=== PATIENT | male | born 1975 | race Hispanic/Latino ===

== ENCOUNTER 2016-10-17 17:58 | Emergency (ER) | payer BC, MEDICAID ==
[2016-10-17 17:58] VITALS: BMI 30.7
[2016-10-17 18:37] VITALS: BP 122/80; PULSE 70; RESP 18; TEMP 98.2; O2SAT 97
--- NOTE | 2016-10-17 20:58 | C.PDOC ---
History Of Present Illness 41 year old patient presents to the ED complaining of left wrist pain for the past 4-5 days. Patient reports he was lifting something heavy at work when he felt a sharp pain in his wrist. The pain has been constant. Patient denies fever , numbness, weakness, or taking any medications. Time Seen by Provider: 10/17/16 20:06 Chief Complaint (Nursing): Finger,Hand,&Wrist History Per: Patient History/Exam Limitations: no limitations Onset/Duration Of Symptoms: Days (4-5) Current Symptoms Are (Timing): Still Present Quality: "Pain" Severity: Mild Pain Scale Rating Of: 3 Exacerbating Factor(s): Movement Recent travel outside of the [place]: No Past Medical History Reviewed: Historical Data, Nursing Documentation, Vital Signs Vital Signs: Last Vital Signs Temp 98.2 F 10/17/16 18:35 Pulse 70 10/17/16 18:35 Resp 18 10/17/16 18:35 BP 122/80 10/17/16 18:35 Pulse Ox 97 10/17/16 21:12 - Optics 1 Procedures INJECT/INFUSE NEC (06/12/13) Family History: States: Unknown Family Hx - Social History Hx Tobacco Use: No Hx Alcohol Use: No Hx Substance Use: No Review Of Systems Except As Marked, All Systems Reviewed And Found Negative. Constitutional: Negative for: Fever Musculoskeletal: Positive for: Other (left wrist pain) Neurological: Negative for: Weakness, Numbness Physical Exam - Physical Exam Appears: Non-toxic, No Acute Distress Skin: Warm, Dry Extremity: Normal ROM, Capillary Refill (<2 seconds), No Deformity, No Swelling , Other (left wrist: (+)normal radial pulse (+)<2 seconds capillary refill (-) deformity (-)swelling (+)tenderness to the volar aspect of the left wrist (+) good ROM to elbow (+)good strength and sensation) Extremity: Bilateral: Normal Color And Temperature Neurological/Psych: Oriented x3, Normal Motor, Normal Sensation Gait: Steady ED Course And Treatment O2 Sat by Pulse Oximetry: 97 (RA) Pulse Ox Interpretation: Normal - Other Rad left wrist x-ray X-Ray: Interpreted by Me, Viewed By Me Interpretation: no fractures or dislocations Progress Note: Plan: -Motrin. -Left wrist x-ray Disposition Counseled Patient/Family Regarding: Diagnosis, Need For Followup, Rx Given - Disposition Referrals: Jong Shore [Staff Provider] - Disposition: HOME/ ROUTINE Disposition Time: 21:09 Condition: GOOD Additional Instructions: Please follow up with PMD Take motrin for pain Keep wrist splint for support Return to ER if worse Prescriptions: Ibuprofen [Motrin] 600 mg PO Q6H #30 tab Instructions: Wrist Sprain (ED) Forms: Work Excuse Print Language: BANGLADESHI - Clinical Impression Clinical Impression: Left wrist sprain - PA / RN MANAGED CARE / Resident Statement MD/DO has reviewed & agrees with the documentation as recorded. - Scribe Statement The provider has reviewed the documentation as recorded by the Scribe Keyonna Pringle All medical record entries made by the Scribe were at my direction and personally dictated by me. I have reviewed the chart and agree that the record accurately reflects my personal performance of the history, physical exam, medical decision making, and the department course for this patient. I have also personally directed, reviewed, and agree with the discharge instructions and disposition.
--- NOTE | 2016-10-18 10:11 | RAD ---
PROCEDURE: Left Wrist Radiographs. HISTORY: pain, twisting injury COMPARISON: None. FINDINGS: BONES: Normal. No fracture. JOINTS: Normal. No dislocation. SOFT TISSUES: Normal. OTHER FINDINGS: None. IMPRESSION: No evidence of acute fracture or dislocation.
--- NOTE | 2016-10-25 12:13 | CARD ---
APPROVED REPORT EKG Measurement Heart [id number] <Conclusion> Sinus bradycardia Otherwise normal ECG
== END 2016-10-17 21:20 | disposition home or self-care (01) ==
LOC: C.ER 17:58
DX: S63.502A Unspecified sprain of left wrist, initial encounter (principal); X50.9XXA Other and unspecified overexertion or strenuous movements or postures, initial encounter; Y92.89 Other specified places as the place of occurrence of the external cause; Y99.0 Civilian activity done for income or pay